=== PATIENT | male | born 1980 | race Caucasian/White ===

== ENCOUNTER 2018-10-05 19:59 | Emergency (ER) | payer OTHER ==
[~2018-10-05] VITALS: Ht 188 cm; Wt 158.8 kg
[2018-10-05 20:15] VITALS: Ht 188 cm; Wt 158.8 kg
[2018-10-05 22:16] LABS: BASOPHIL % 0.3 % (0-2); PLATELET COUNT 193 x10^3mcL (130-400); RED CELL DISTRIBUTION WIDTH 13.7 % (11.5-14.5)
[2018-10-05 22:25] LABS: CALCIUM 8.5 mg/dL (8.5-10.1); CARBON DIOXIDE 29.7 mmol/L (21-32); CHLORIDE SERUM 106 mmol/L (98-107); CREATININE SERUM 1.1 mg/dL (0.7-1.3); GFR1 > 60 mL/min; GLUCOSE SERUM 113 mg/dL (74-106); POTASSIUM SERUM 3.9 mmol/L (3.5-5.1); SODIUM SERUM 142 mmol/L (136-145)
[2018-10-05 22:31] LABS: ALBUMIN 3.4 g/dL (3.4-5.0); ALKALINE PHOSPHATASE 92 U/L (46-116); ALT/SGPT 35 U/L (16-63); AST/SGOT 22 U/L (15-37); BILIRUBIN TOTAL 0.29 mg/dL (0.20-1.00); TOTAL PROTEIN, SERUM 6.8 g/dL (6.4-8.2)
[2018-10-05 22:56] LABS: UA SPECIFIC GRAVITY >=1.030 (1.005-1.035)
[2018-10-05 22:57] LABS: microscopic required? YES; urine erythrocyte NEGATIVE (NEGATIVE)
[2018-10-05 23:17] LABS: AMPHETAMINE QUAL UR NONE DETECTED (See below)
--- NOTE | 2018-10-06 07:13 | NUR ---
Pt [facility] received via fax. [facility] and [facility]. All state no bed, but will review packet for possible future placement. Packet faxed to these facilities, they will call pending acceptance. Will continue looking for placement.
[2018-10-06 07:43] VITALS: BP 150/80
== END 2018-10-06 07:43 | disposition left against medical advice (07) ==
LOC: EDBD 19:59 → ED 19:59
PROVIDERS: Emergency Medicine
DX: R41.82 Altered mental status, unspecified (principal); R41.0 Disorientation, unspecified; F22 Delusional disorders; R46.89 Other symptoms and signs involving appearance and behavior
CPT/HCPCS: G0480; J1200; J1630; J2250; J7030; Q0092